=== PATIENT | female | born 1965 | race Caucasian/White ===

== ENCOUNTER 2016-10-19 08:08 | Outpatient (CLI) ==
[2016-02-02 15:58] VITALS: BMI 25.7
--- NOTE | 2016-10-19 09:02 | CT ---
EXAM: CT soft tissue neck without contrast. HISTORY: Dysphagia. COMPARISON: Cervical spine CT 02/02/2016. TECHNIQUE: Multiple axial images of the neck were obtained without contrast. Images were reformatt ed in the sagittal and coronal plane. FINDINGS: Note evaluation of the soft tissues of the neck is limited due to lack of intravenous con trast. The parotid and submandibular glands are symmetric. Nonenlarged lymph nodes present in the neck. N o subcutaneous edema or fluid collections identified. The pharyngeal soft tissues, epiglottis and laryngeal structures demonstrate no localized abnormalit y. Subglottic airway is normal in caliber. Thyroid gland is normal in size. No abnormality of the visualized esophagus identified. The lung apices without acute abnormality. Subpleural reticular opacities likely represent scarring or atelectasis. Degenerative changes present in the spine most notable at C5-6. No acute osseous abnormality identi fied. No intracranial or intraorbital abnormality identified. IMPRESSION: No acute abnormality of the neck.
--- NOTE | 2016-10-19 10:11 | DI ---
EXAM: Upper GI series HISTORY: GERD COMPARISON: None FINDINGS: Upper GI series was performed using barium. Esophageal motility is normal. Esophageal fariha iber is normal. No filling defect is seen in the esophagus. There is small hiatal hernia. No reflux identified on real time examination. The stomach appears grossly normal without mass lesion or ulcer . Small duodenal diverticulum. Duodenum otherwise unremarkable. IMPRESSION: 1. Very small hiatal hernia. 2. Small duodenal diverticulum.
== END 2016-10-19 08:09 | disposition home or self-care (01) ==
LOC: RAD 08:08
PROVIDERS: ATTEND Family Medicine
DX: K21.9 Gastro-esophageal reflux disease without esophagitis (principal); R13.10 Dysphagia, unspecified

== ENCOUNTER 2018-03-05 12:05 | Outpatient (CLI) ==
[2016-02-02 15:58] VITALS: BMI 25.7
--- NOTE | 2018-03-06 07:42 | MRI ---
EXAM: MRI soft tissue neck without and with IV contrast. DATE: 03/05/2018. HISTORY: Soft palate paralysis. Numbness of the soft palate and face. 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 Pain. TECHNIQUE: Multiplanar, multisequence imaging of the soft tissues of neck is performed before after IV contrast administration using 1.2 Viri magnet. CONTRAST: Omniscan - 12 ml IV. COMPARISON: MRI C-spine [address] soft tissue neck 19 October 2016. FINDINGS: Visible portion of the brain and brainstem reveals no acute infarct, hemorrhage, enhancing neoplasm or hydrocephalus. Right vertebral artery is small in size. No intracranial aneurysm or AV M is detected. Cerebellopontine angles and seventh/eighth cranial nerve complexes are grossly normal . Visible portion of each eye reveals no abnormality. A few inferior right mastoid air cells have T2 W bright, T1W intermediate signal with minor enhancement. No paranasal sinus opacification, air-fluid level, or significant mucosal thickening is identified. There is no soft tissue mass in the paranasal sinuses. No definitive lesion is identified in the sof t palate or hard palate. The tongue is unremarkable. Trachea, larynx, and epiglottis are normal. Left thyroid lobe is smaller than the right. No thyroid , submandibular, or parotid gland neoplasm is evident. Small anterior cervical chain lymph nodes are present, but no lymphadenopathy or soft tissue malignancy is apparent. There is no abnormal contras t enhancement of the neck. Lung apices reveal no pneumonia, pneumothorax, or pleural effusion. Images of the cervical spine reveal no acute c-spine fracture, subluxation, osseous malignancy, or ju mped facet. Cervical vertebrae normal in height. Bone marrow signal is overall normal. Minor disc space narrowing is present at C5-6. Small posterior disc/osteophyte complexes a at C3-4 and C5-6 cau se mild central canal stenoses, but no cord compression. Minimal myelomalacia is suspected at C5 cor d level. No syrinx or cord neoplasm is detected IMPRESSIONS: 1. No neck mass, acute inflammatory process, or lymphadenopathy. 2. C4-5 and C5-6 DDD and mild central canal stenoses. 3. Questionable minor right mastoiditis.
== END 2018-03-05 12:06 | disposition home or self-care (01) ==
LOC: RAD 12:05
PROVIDERS: ATTEND Family Medicine
DX: K13.79 Other lesions of oral mucosa (principal)